=== PATIENT | male | born 1940 | race Caucasian/White ===

== ENCOUNTER → 2017-11-22 | Outpatient (CLI) | payer OTHER ==
[~2017-11-22] VITALS: Ht 180.3 cm; Wt 85.3 kg
[~2017-11-22] MED LIST: ASPIR 8181 MG PO; CARVEDILOL3.125 MG PO; COLACE100 MG PO; GLUCOTROL5 MG PO; HYDROCHLOROTHIA25 M2 PO; LIPITOR10 MG PO; METFORMIN HCL850 MG PO; MIRALAX17 GM PO; NITROGLYCERIN0.4 MG SUBLING; PROTONIX40 M1 PO; QUINAPRIL HCL5 MG PO; XALATAN2.5 ML OPHTHALMIC
--- NOTE | ~2017-11-22 | PATH ---
[facility] [address] [place] [address] PATHOLOGY RPT PROCEDURE Name: JIGAR JOHNS Room #: [facility] Teresa.#: [id number] Admission: 11/22/17 Date of : 36 Discharge: Report #: [id number] Path Case #: [id number] [facility] Accession Number: [id number] . 01 Material submitted: . PART A: ANTRUM R/O H PYLORI BIOPSY PART B: DISTAL ESOPHAGUS R/O BARRETTS BIOPSY . 01 Clinical history: . Pre-OP DX: Abnormal imaging, dysphagia, heartburn Post-OP DX: Gastritis, hiatal hernia . 02 Diagnosis: A. Gastric mucosa, antrum, endoscopic biopsy: - Mild chronic active gastritis with features of reactive gastropathy. - Negative for intestinal metaplasia or atrophy. - Negative for Helicobacter pylori (properly controlled immunohistochemical stain performed). . B. Gastroesophageal mucosa, distal esophagus, rule out Duff's, endoscopic biopsy: - Specialized columnar epithelium (gastric cardia-type mucosa) with intestinal metaplasia, compatible with Duff's metaplasia. - Negative for dysplasia. - Squamous mucosa with mild esophagitis and changes compatible with reflux esophagitis. [facility]/11/23/2017 . 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 (IUV:pit 11/23/2017) . 02 Electronically signed: . Joleen Ryan MD, Pathologist NPI- [id number] . 01 Gross description: . A. Received in formalin labeled "Jigar Johns, antrum, rule out H. pylori BX," is a single segment of geller soft tissue measuring 0.5 cm in maximum dimension. The specimen is entirely submitted in cassette A1. . B. Received in formalin labeled "Jigar Johns, distal esophagus, rule out Duff's," is a single segment of geller soft tissue measuring 0.5 [place] [address] PATHOLOGY RPT PROCEDURE Name: JIGAR JOHNS Room #: [facility] Richards#: [id number] Admission: 11/22/17 Date of : 36 Discharge: Report #: [id number] Path Case #: [id number] maximum dimension. The specimen is entirely submitted in cassette B1. (TSD; 11/22/2017) TOB/TOB . 02 Pathologist provided ICD-10: K29.50, K31.9, K22.70, K21.0 . 02 CPT . 849325, 387876, [id number] Performed at: [address], [place] [id number] MD Bunny Delvalle MD Phone: [phone] Performed at: [address] [id number] MD Joleen Ryan MD Phone: [phone]
== END | disposition home or self-care (01) ==
LOC: GI 07:30
DX: K29.50 Unspecified chronic gastritis without bleeding (principal); K22.70 Barrett's esophagus without dysplasia; K31.9 Disease of stomach and duodenum, unspecified; K21.0 Gastro-esophageal reflux disease with esophagitis; K44.9 Diaphragmatic hernia without obstruction or gangrene; K22.8 Other specified diseases of esophagus; I10 Essential (primary) hypertension; E78.00 Pure hypercholesterolemia, unspecified; E11.9 Type 2 diabetes mellitus without complications; G20 Parkinson's disease; M81.0 Age-related osteoporosis without current pathological fracture; Z85.828 Personal history of other malignant neoplasm of skin; Z85.46 Personal history of malignant neoplasm of prostate; Z87.19 Personal history of other diseases of the digestive system; Z95.1 Presence of aortocoronary bypass graft; Z95.5 Presence of coronary angioplasty implant and graft; Z98.52 Vasectomy status; Z98.890 Other specified postprocedural states; Z79.01 Long term (current) use of anticoagulants; Z95.2 Presence of prosthetic heart valve; Z88.8 Allergy status to other drugs, medicaments and biological substances
CPT/HCPCS: 62110; 62900

== ENCOUNTER → 2018-07-10 | Outpatient (CLI) | payer OTHER | LOC: RAD 09:07 | DX: K59.00 Constipation, unspecified (principal) ==